=== PATIENT | female | born 1940 | race Caucasian/White ===

== ENCOUNTER 2017-02-11 23:10 | Inpatient (IN) | payer BC, OTHER ==
[~2017-02-11] VITALS: Ht 157.5 cm; Wt 79.4 kg
--- NOTE | ~2017-02-11 | HC ---
[facility] [place] [address] CONSULTATION Name: LEEANN RILEY Room #: 315-P [facility] IN M.R.#: [id number] Admission: 02/12/17 Attend Phys: Mookie Bradley DO Discharge: 02/14/17 Date of : 44 Report #: [id number] THIS REPORT FOR: //name// CC: Mookie Parada MD NO PCP Carolin Moore MD REASON FOR CONSULTATION: Gastric cancer. HISTORY OF PRESENT ILLNESS: The patient is a very pleasant 76-year-old female who I follow with a history of recurrent/metastatic gastric cancer and I had last seen on 12/07/2016. She gives about a 1-week history of some slight increase in mid abdominal, almost periumbilical and below the umbilicus abdominal pain that began worse last night. It began a week ago, it was coming and going, it was constant since last night. She denies any fevers, chills, arm or leg swelling, vision trouble, swallowing troubles, mouth sores, chest pain, nausea, vomiting, blood in her urine or stool, diarrhea, constipation, skin rash. Did have a little bit dry skin from working in her brother's yard clearing some weeds. The patient says the pain is really not changed by eating or drinking or defecation or urination. Does feel slightly better when she is lying down and she curls up versus lying flat, has not had any trauma to this area. She is not aware of any bruising in this area. PAST MEDICAL HISTORY: Past history is notable for history of gastric cancer diagnosed in 2004. The patient had a surgery with a Bilroth II. 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 She received chemotherapy with modified FOLFOX6 chemotherapy, which was completed on 04/2014. She had later had progression, was asymptomatic. In 04/2016, she began Xeloda. She probably had omental mass, small in May. In 08/2016, the mass was essentially stable. At that time, she had been having troubles with the current dose and it was thought that if she does restart, she had interaction with antibiotic, we could restart her at a lower dose. 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 She also has a history of whiplash neck pain. 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 Had more recently been using Starr XL and also a water purification system. She has a history of a heart murmur and aortic stenosis. She also has a history of right breast ductal carcinoma in situ for which she had a lumpectomy and radiation therapy back in 2010. Also, has a history of iron deficiency anemia that may be related to difficult absorption, treated with in 06/2016. 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 She also enjoys working outdoors in her and her brother's garden. She is a never smoker. She also does not drink alcohol, no street drugs. FAMILY HISTORY: Mother had diabetes. Father had some form of cancer. Sister with hypertension. Brother with heart disease. Brother with depression. Another brother with heart disease, diabetes and hypertension. MEDICATIONS: At this time in the hospital currently include methocarbamol 500 mg daily, lidocaine patch daily, gabapentin 300 mg b.i.d., duloxetine/Cymbalta 20 mg daily, amlodipine 2.5 mg daily, pantoprazole 40 mg b.i.d., lorazepam 0.5 t.i.d. p.r.n., loratadine 10 mg daily, Zofran as needed, morphine as needed. PHYSICAL EXAMINATION: GENERAL: The patient appears her stated age. VITAL SIGNS: Current height is 5 feet 2, 157.5 cm. Weight is 175 pounds or 79.6 kilograms. Blood pressure is 144/67 in the left arm with an O2 sat of 97%, respirations 20, pulse 59, afebrile with the current temperature early of 97.6. MOOD: The patient is alert, pleasant and conversant. NEUROLOGIC: Face is symmetrical. She is moving all extremities. LUNGS: Clear, symmetric without rhonchi or rales. HEART: The patient has a murmur consistent with aortic stenosis. No JVD or HDR noted. LYMPH NODES: None palpable in the supraclavicular, cervical, axillary or inguinal region. ABDOMEN: Does have some slight tenderness and slight fullness just below and slightly to the left of the umbilicus in the area that feels slightly full, measures maybe about 3 cm. The patient describes that dysesthesia is going down her left lower abdomen and slightly towards her leg. EXTREMITIES: Without clubbing, cyanosis or edema. Abdomen otherwise besides that fullness near the umbilicus, has no other masses. LABORATORY REVIEW: Has normal electrolytes, BUN of 12, creatinine of 0.8. Liver functions normal. Albumin of 3.5. White count of 4.1, hemoglobin 8.9 with an MCV of 90.4, platelets of 156. Differential normal. In the office recently, her hemoglobin had been 11.6 with an MCV of 94.3. Ferritin was checked on 12/03 and was 47 in the office, up from 27 back in June. UA was unremarkable in the hospital. CAT scan done at [facility] on 02/11/2017, the impression described and this was without comparison, a mass measuring 3.5 x 7.5 cm with irregular margins in the anterior abdominal, adjacent to the umbilicus. They also see evidence of past gastric bypass surgery. Note that I discussed with the patient, I have already placed orders to have the [facility] abdomen from 12/2016 clouded to [facility] and I have already placed an order for comparison. [address] [address] CONSULTATION Name: LEEANN RILEY Room #: 315-P [facility] IN M.R.#: [id number] Admission: 02/12/17 Attend Phys: Mookie Bradley DO Discharge: 02/14/17 Date of : 44 Report #: [id number] ASSESSMENT AND PLAN: 1. Gastric adenocarcinoma had been responding to Xeloda, could consider would get CAT scan for comparison, could consider restarting Xeloda or could consider radiation therapy, as she has not had radiation therapy to this area. 2. Abdominal pain. Continue opiates and Neurontin, could also consider celiac plexus block. 3. Neuropathy from the past, gabapentin that made her sleepy. 4. Iron deficiency anemia in the past. Hemoglobin slightly decreased, will need monitoring. 5. Right-sided ductal carcinoma in situ from years ago. No sign of recurrence. 6. Aortic stenosis with heart murmur, asymptomatic. 7. Hypertension. Amlodipine. We will follow with you. <ELECTRONICALLY SIGNED> By: Brandon Stapleton MD 02/15/17 0715 [id number] Brandon Stapleton MD /nt
[~2017-02-11 23:10] MED LIST: ALPHA LIPOIC A600 M1 PO; AMOXICILLIN 50500 MG PO; ASPIR 8181 MG PO; ATIVAN0.5 MG PO; BUTRANS1 EAC1 TD; BUTRANS1 EAC1 TRANSDERM; CENTRUM SILVER1 EAC4 PO; CLARITIN10 MG PO; COMPAZINE10 MG PO; CYANOCOBAL1000 MCG/1 IM; CYMBALTA20 MG PO; FENTANYL PA25 MCG/HR TRANSDERM; FISH OIL 1,001000 M2 PO; LIDODERM 5%1 PATC1 TRANSDERM; MOBIC7.5 MG PO; MYRBETRIQ25 MG PO; NEURONTIN 300300 M1 PO; ONDANSETRON HCL4 M2 PO; OXYBUTYNIN 5 MG5 M2 PO; OXYCODONE HCL 55 MG PO; PEPCID20 MG PO; PROTONIX40 M1 PO; ROBAXIN 750 MG750 M1 PO; STOOL SOFTENER100 M1 PO; VITAMIN D3400 UNIT PO
[2017-02-11 23:11] VITALS: BP 176/83
[2017-02-11 23:49] LABS: ANION GAP 7 mmol/L (7-16); BUN 12 mg/dL (7-18); CALCIUM 9.2 mg/dL (8.5-10.1); CHLORIDE 108 mmol/L (98-107); CO2 25 mmol/L (21-32); CREATININE 0.8 mg/dL (0.6-1.0); GLUCOSE 110 mg/dL (74-106); POTASSIUM 3.7 mmol/L (3.5-5.1); SODIUM 140 mmol/L (136-145)
[2017-02-11 23:55] LABS: ALBUMIN 3.5 g/dL (3.4-5.0); ALKALINE PHOSPHATASE 81 U/L (46-116); DIRECT BILIRUBIN < 0.1 mg/dL (<0.1-0.3); SGOT 19 U/L (15-37); SGPT 37 U/L (30-65); TOTAL BILIRUBIN 0.3 mg/dL (<0.1-1.0); TOTAL PROTEIN 6.6 g/dL (6.4-8.2)
[2017-02-11 23:59] LABS: ABSOLUTE NEUTROPHILS 2.4 thou/uL (1.4-8.2); BASOPHILS 0.7 % (0.0-2.0); EOSINOPHILS 7.1 % (0.0-3.0); HEMATOCRIT 25.8 % (37.0-47.0); HEMOGLOBIN 8.9 gm/dL (12.0-15.0); LYMPHOCYTES 24.8 % (24.0-44.0); MCH 31.2 pg (26.0-34.0); MCHC 34.5 g/dL (28.0-37.0); MCV 90.4 fL (80.0-100.0); MONOCYTES 9.6 % (1.0-8.0); PLATELET COUNT 156 thou/uL (150-400); POLYS 57.8 % (36.0-66.0); RBC 2.85 mil/uL (4.20-5.00); RDW 13.9 % (10.5-14.5); WBC 4.1 thou/uL (4.0-11.0)
[2017-02-12 00:01] LABS: MANUAL DIFF NO
[2017-02-12 00:13] LABS: URINE BILIRUBIN NEGATIVE (Negative); URINE BLOOD 1+ (Negative); URINE COLOR YELLOW; URINE GLUCOSE-RANDOM* NEGATIVE (Negative); URINE KETONES NEGATIVE (Negative); URINE NITRITE NEGATIVE (Negative); URINE PROTEIN (DIPSTICK) NEGATIVE (Negative); URINE UROBILINOGEN 0.2 E.U./dl (0.2-1.0)
[2017-02-12 00:36] LABS: BACTERIA None Seen /HPF (None Seen); CASTS None Seen /LPF (None Seen); CRYSTALS None Seen /LPF (None Seen); SQUAMOUS None Seen /LPF (0-3); URINE RBC 0-2 Rare /HPF (0-2); URINE WBC None Seen /HPF (0-5)
[2017-02-12 02:34] VITALS: BP 160/55
[2017-02-12 02:55] VITALS: BP 144/67
[2017-02-12] MEDS ORDERED: OXYBUTYNIN 5 MG5 M2 PO (04:19)
[2017-02-12] MEDS ORDERED: NORVASC2.5 MG PO (04:19)
[2017-02-12] MEDS ORDERED: BIOTIN10 MG (07:30)
[2017-02-12] MEDS ORDERED: XELODA500 MG PO (07:32)
[2017-02-12] MEDS ORDERED: FLEXERIL (07:33)
[2017-02-12] MEDS ORDERED: RESTASIS1 EACH (07:34)
[2017-02-12] MEDS ORDERED: REGLAN 10 MG TA10 MG (07:35)
[2017-02-12 08:53] VITALS: BP 161/61
[2017-02-12 16:00] VITALS: BP 148/62
[2017-02-12 19:55] VITALS: BP 155/66
[2017-02-13 00:30] VITALS: BP 141/61
[2017-02-13 04:10] VITALS: BP 139/61
[2017-02-13 08:24] VITALS: BP 143/69
[2017-02-13 16:01] VITALS: BP 142/63
[2017-02-13 19:40] VITALS: BP 155/69
[2017-02-14 04:00] VITALS: BP 148/60
[2017-02-14 04:56] LABS: ABSOLUTE NEUTROPHILS 2.1 thou/uL (1.4-8.2); BASOPHILS 0.6 % (0.0-2.0); EOSINOPHILS 7.2 % (0.0-3.0); HEMATOCRIT 36.8 % (37.0-47.0); LYMPHOCYTES 35.1 % (24.0-44.0); MCH 30.2 pg (26.0-34.0); MCHC 33.9 g/dL (28.0-37.0); MCV 89.1 fL (80.0-100.0); MONOCYTES 9.8 % (1.0-8.0); PLATELET COUNT 184 thou/uL (150-400); POLYS 47.3 % (36.0-66.0); RBC 4.13 mil/uL (4.20-5.00); RDW 13.2 % (10.5-14.5); WBC 4.3 thou/uL (4.0-11.0)
[2017-02-14 05:14] LABS: CALCIUM 8.8 mg/dL (8.5-10.1); CREATININE 0.7 mg/dL (0.6-1.0); POTASSIUM 4.1 mmol/L (3.5-5.1)
[2017-02-14 05:54] LABS: HEMOGLOBIN 12.5 gm/dL (12.0-15.0); MANUAL DIFF NO
[2017-02-14 08:58] VITALS: BP 144/63
[2017-02-14 16:19] VITALS: BP 122/51
[2017-02-14] MEDS ORDERED: PERCOCET 7.5-31 EACH PO (16:19)
[2017-02-14 16:23] VITALS: BP 122/51
[2017-02-14] MEDS ORDERED: PROTONIX40 M1 PO (17:02)
[2017-02-14] MEDS ORDERED: NEURONTIN 300300 M1 PO (17:02)
== END 2017-02-14 18:09 | disposition home or self-care (01) | DRG 376 ==
LOC: ER 23:10 → EROBS 02-12 01:36 → 3N 02-12 01:36
PROVIDERS: Emergency Medicine; Family Medicine
DX: C16.9 Malignant neoplasm of stomach, unspecified (principal); I10 Essential (primary) hypertension; G62.9 Polyneuropathy, unspecified; I70.1 Atherosclerosis of renal artery; D63.8 Anemia in other chronic diseases classified elsewhere; I35.0 Nonrheumatic aortic (valve) stenosis; C50.911 Malignant neoplasm of unspecified site of right female breast; G47.62 Sleep related leg cramps; Z79.82 Long term (current) use of aspirin; Z79.899 Other long term (current) drug therapy; Z90.49 Acquired absence of other specified parts of digestive tract; Z90.710 Acquired absence of both cervix and uterus; Z88.2 Allergy status to sulfonamides; Z90.3 Acquired absence of stomach [part of]; Z83.3 Family history of diabetes mellitus; Z82.49 Family history of ischemic heart disease and other diseases of the circulatory system; Z81.8 Family history of other mental and behavioral disorders
CPT/HCPCS: 10094

== ENCOUNTER → 2017-02-18 | Outpatient (CLI) | payer BC, OTHER ==
[~2017-02-18] VITALS: Ht 162.6 cm; Wt 80.7 kg
[~2017-02-18] MED LIST changes: +BIOTIN10 MG; +FLEXERIL; +FOLIC ACID1 MG PO; +NORVASC2.5 MG PO; +PERCOCET 7.5-31 EACH PO; +REGLAN 10 MG TA10 MG; +RESTASIS1 EACH; +XELODA500 MG PO
--- NOTE | ~2017-02-18 | HPC ---
[facility] [place] [address] [address] [place] [address] PAIN MANAGEMENT CONSULTATION Name: LEEANN RILEY Room #: [facility]#: [id number] Admission: 02/18/17 Attend Phys: Ricky Pugh DO Discharge: Date of : 42 Report #: [id number] THIS REPORT FOR: //name// CC: Carolin Pugh DATE OF SERVICE: 02/18/2017 DATE OF SERVICE: 02/18/2017 HISTORY OF PRESENT ILLNESS: The patient is a 76-year-old female, she was seen approximately [address] Mookie Pugh for chronic abdominal pain, metastatic adenocarcinoma with component of radicular pain. He trialled her on a calcium channel membrane stabilizing agent (Gralise), she was somewhat lost to follow up. The patient apparently was in the hospital for 2 days last week with acute abdominal pain. She presents to the pain clinic today essentially in consultation for evaluation of ongoing abdominal pain with recent exacerbation. The patient was seen for a prolonged visit, greater than 45 minutes was spent with the patient reviewing medical history, discussing interval health history and therapeutic options. The patient notes she initially had gastric bypass surgery in 1982, did reasonably well, in 2007, she was diagnosed with stomach cancer, had abdominal resection. The patient reports the carcinoma was limited to the area of the stomach that had been oversewn, they were able to resect her stomach with carcinoma "in situ." Apparently, she had no chemo or radiation therapy. Did reasonably well, in 2009, she was diagnosed with right breast cancer, discerned fairly early. She had a lumpectomy and 32 rounds of radiation therapy. In 2012, she developed some abdominal wall pain, had an exploratory laparotomy, was diagnosed with metastatic adenocarcinoma. Had a G-tube placed initially, but this only lasted about 6-8 weeks. She did have chemotherapy for greater than a year. She has some ongoing back pain treated with chiropractic manipulation over the past couple of years. Two weeks ago abdominal wall pain became problematic, left lower area. She describes it as periodic, burning pain. She has been started on Percocet 7.5/325 three times a day and gabapentin 300 mg with good efficacy at present. Notes referred to her starting on Xeloda, though she tells us that Dr. Stapleton has revised that recommendation, apparently now she is scheduled to have simply a targeted radiation therapy to an abdominal wall metastasis, left lower quadrant. She is currently still pending a CT [place] [address] PAIN MANAGEMENT CONSULTATION Name: LEEANN RILEY Room #: REG [facility] Fer#: [id number] Admission: 02/18/17 Attend Phys: Ricky Pugh DO Discharge: Date of : 44 Report #: [id number] Currently, she rates her pain anywhere from 3-10 on VAS, notes the pain is exacerbated with contact, left lower abdomen, and eating acidic foods. Medications seem to give her very good relief at present. REVIEW OF SYSTEMS: Complete review of systems attached to chart and gone over with the patient. SOCIAL HISTORY: She is and seen in the company of one of her sons. She does not smoke or drink alcohol to excess. PAST MEDICAL HISTORY: History of hypertension, treated with amlodipine; some gastroesophageal reflux for which she takes famotidine. Some chronic anxiety, takes low dose Cymbalta 20 mg. Trialled a Lidoderm patch topically for the left lower abdominal pain with no efficacy. Started gabapentin fairly aggressive dosing 1 in the morning, 2 at night, did have some cognitive and visual impairment with this, back to taking it b.i.d. presently. Oxycodone initially started at 5 mg IR increased to 7.5/325 Percocet tablets. Again, taking this 2-3 times a day. 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 Pain impact score is fairly low, averaging 28/70. PHYSICAL EXAMINATION: GENERAL: Reveals a 5 feet 2 inches, 174 pounds female, BMI is 30.5 kilograms per meter squared. VITAL SIGNS: Stable as noted in the EMR. NEUROLOGIC: Cranial nerves 2-12 are grossly intact. HEENT: Pupils equal, react to light and accommodation. Extraocular muscles are intact. There is no nystagmus or lateral gaze deviation. NECK: Cervical range of motion is full. Thyroid is unremarkable. EXTREMITIES: Upper extremity strength is generally symmetric. HEART: Regular and rhythmical with a grade 2-3/6 holosystolic ejection murmur. ABDOMEN: Shows endomorphic build. Rises from chair using armrest. Gait is tandem, lower extremity strength is preserved. Inspection of the abdominal wall reveals normal ____, no rebound, is noting little bit of tenderness and slight guarding, left lower quadrant. The patient notes the nodular sensation here, although, it is a subtle feel to palpation. Right upper quadrant hepatic margin is unremarkable. There is no CVA angle tenderness. Skin integument is intact. DIAGNOSTIC STUDIES: Include a CT of the abdomen from 02/11/2017 noting history of bypass surgery, moderate thickening of the stomach and adjacent inflammation suggesting infiltrative malignancy or possible severe gastritis. Thickening of the upper abdominal wall measuring 7.5 x 3 cm with irregular margins, quite prominent for postoperative scar and felt to be entry level account representative of infiltrating neoplasm or metastasis. There is high-grade narrowing in the origin of the [facility] [address] [place] [address] PAIN MANAGEMENT CONSULTATION Name: LEEANN RILEY Room #: [facility]#: [id number] Admission: 02/18/17 Attend Phys: Ricky Pugh DO Discharge: Date of : 42 Report #: [id number] celiac trunk, with atherosclerosis of the aorta with severe narrowing of the left renal artery as well. Renal function, however, remains normal. ASSESSMENT: 1. Chronic abdominal pain, acute exacerbation with adenocarcinoma or metastasis to the left lower abdominal wall. Planning spot radiation therapy to this area. 2. History of breast carcinoma. 3. Currently patient rates pain as moderate and well controlled with gabapentin 300 mg b.i.d., Percocet 7.5/325 2 to 3 a day. RECOMMENDATIONS: 1. Continue current medication, titrate gabapentin up to 1 in the morning, 2 at night. 2. Follow up in 2 weeks for reevaluation. 3. We discussed at length celiac plexus block with the patient and her son. We talked about the details of the procedure, indications, and side effects including loose stools, increased gastric transit time, abdominal cramping. My primary concern with celiac plexus block in this patient is that some of the pain appears to be actually coming from the abdominal wall proper. Certainly celiac plexus block will be good for any intraperitoneal generated pain, may not show good efficacy for abdominal wall pain, which is somewhat in a more radicular pattern. We will proceed with diagnostic block of the celiac plexus with follow up in 2 weeks if current medications are not affording adequate relief. If this does give good relief, we can consider moving forward with celiac plexus ablation. If it helps with abdominal pain, but really does not affect the primary pain, which is abdominal wall pain, we may consider other therapeutic options at that time. Thank you for allowing me to participate in the patient's care. She was seen for a prolonged visit, approximately 45 minutes was spent with the patient and her son today. Discharged in good and stable condition. By: 1214 [id number] Ricky Pugh DO /nt
[2017-02-18 08:13] VITALS: BP 129/65
== END ==
LOC: PAIN 06:08
DX: C16.9 Malignant neoplasm of stomach, unspecified (principal)